=== PATIENT | female | born 1990 ===

== ENCOUNTER 2025-03-04 14:21 | Inpatient (IN) | payer OTHER, SELFPAY ==
[2025-03-04 10:17] VITALS: BP 143/87
--- NOTE | 2025-03-04 11:02 | ED.GENMED ---
History of Present Illness
General
Chief Complaint: Abdominal Pain
Source: patient
Exam Limitations: none
Time Seen by Provider: 03/04/25 10:51
History of Present Illness
History of Present Illness:
35-year-old female diffuse abdominal symptoms for 5 days. Some nausea. Generalized discomfort. Initially started in the lower abdomen. Points to bilateral abdomen and flanks. No back pain some nausea although none currently. No diarrhea. No
one else is ill at home. No travel history. No recent antibiotics.
Past History
Past History
ED Past Medical History: None
ED Past Surgical History: Appendectomy
Review of Systems
Review of Systems
All Other Systems: Not applicable
Constitutional: Denies fever
Respiratory: Reports no symptoms
: Reports no symptoms
Phy Exam
Physical Exam
Physical Exam:
GENERAL: Alert and oriented in no apparent distress. Ambulated from the bathroom without difficulty and in no distress
EYE: Orbits normal.
NECK: Supple
ENT: Pharynx without erythema
CARDIAC: Regular rate and rhythm without any obvious murmurs.
LUNGS: Clear breath sounds,normal
ABDOMEN: Soft, bowel sounds present. No distention. No rebound or guarding no mass or hernia. Very minimal diffuse tenderness. Mild tenderness slightly increased from baseline tenderness in the left lower quadrant
NEUROLOGICAL: Alert and oriented , grossly non-focal
SKIN: Warm and dry, no rash or lesion, no discoloration, skin intact.
MUSCULOSKELETAL: No edema,no deformity.Good color
PSYCH: Normal and appropriate interaction.
Course
Orders/Labs/Results
Orders:
Orders
03/04/25 10:54
IV Insert/Care/Rem.- Treatment PRN
0.9% Sodium Chloride 1000 ml [Nss] 1,000 ml IV BOLUS
Test Result ONCE
03/04/25 11:02
CT Abd/Pel (IV only)-DH only Urgent
Comment:
Reason For Exam: Diffuse abdominal pain. Greatest left lower quadr
03/04/25 11:10
Complete Blood Count/With Diff Urgent
Urinalysis Reflex To Culture Urgent
Date Specimen was Collected: 03/04/25
Time Specimen was Collected: 10:59
Urine Microscopic Reflex Cult Urgent
Urine Culture Urgent
DAIANA Source: U
Specimen Description:
Obtained by: Random
Date Specimen was Collected: 03/04/25
Time Specimen was Collected: 10:59
03/04/25 11:35
Comprehensive Metabolic Panel Urgent
HCG, Serum Qualitative Screen Urgent
Lipase Urgent
03/04/25 13:25
Piperacillin/Tazo 3.375 Gram [Zosyn] 3.375 gram in 50 ml IV NOW
Abnormal Lab Results
03/04/25 03/04/25
11:10 11:35
WBC 14.3 H 10^3/uL
(4.8-10.8)
MPV 11.0 H fL
(7.4-10.4)
Abs Immat Gran (auto) 0.1 H 10^3/uL
(0-0.05)
Absolute Neuts (auto) 10.2 H 10^3/uL
(1.4-6.5)
Absolute Monos (auto) 0.9 H 10^3/uL
(0.1-0.6)
Lymphocytes % 17.4 L %
(20.5-51.1)
Creatinine 0.5 L mg/dL
(0.6-1.0)
ALT 41 H U/L
(0-35)
Leukocyte Esterase Rfl 1+ A
(Negative)
Urine Bacteria (Reflex) Many A
(Negative)
Urine Albumin (Reflex) 1+ A
(Neg - Trace)
03/04/25 11:10
03/04/25 11:35
Vital Signs
Initial and Last Documented VS:
Initial Vital Signs
Temp Pulse Resp BP Pulse Ox
98.1 F 90 16 143/87 98
03/04/25 10:17 03/04/25 10:17 03/04/25 10:17 03/04/25 10:17 03/04/25 10:17
Last Documented Vital Signs
Temp Pulse Resp BP Pulse Ox
98.1 F 75 16 116/75 100
03/04/25 10:17 03/04/25 12:30 03/04/25 12:30 03/04/25 12:00 03/04/25 12:30
MDM/Problems Addressed
Differential Diagnosis Includes:
Diffuse vague abdominal symptoms. Clinically nonsurgical abdomen. Patient is nontoxic. Greatest tenderness is left lower quadrant. Consider diverticulitis, viral syndrome. Doubt gallbladder. Appendix is gone. Highly doubt bowel obstruction.
Workup in progress. Not describing symptoms. Menses were normal. Denies .
*Pulse Oximetry
SaO2: 98
Oxygen Mode of Delivery: Room air
Patient hypoxic: no
*Critical Care Note
Total Time (30-74mins, 75-104mins- exclusive of procedures): Not Applicable
Update Note
Update Note:
Copy of CT report given to patient for follow-up. Hepatic steatosis along with diverticulitis
Discussed options with patient. Moderate diverticulitis. Leukocytosis. Some free fluid. I have elected for inpatient management
ED Attending Note
-
Portions of this chart may have been created with voice recognition software.� Occasional wrong word or��sound alike� substitutions may have occurred due to the inherent limitations of voice recognition software.
Discharge Plan
Departure
Patient Disposition: Admit
Date of Disposition: 03/04/25
Time of Disposition: 13:26
Presentation/result/management discussed w/ accepting MD/DO: Hospitalist
Discharge Problem:
Acute diverticulitis, Small ovarian cyst, Hepatic steatosis
Prescriptions:
No Action
ibuprofen 200 mg Tablet
800 mg PO DAILYPRN PRN (Reason: mild pain)
Referrals:
Estuardo Canales CRNP [Family Provider]
Interventions
Interventions:
*Risk Screen - Suicide Last Done: 03/04/25 10:17
*Neglect/Abuse Screening Last Done: 03/04/25 10:17
[facility] Assessment Last Done: 03/04/25 11:13
Discharge Date and Time
Print Language: AZERBAIJANI
[2025-03-04] MEDS: NSS 1000 IV ×2 (11:09→15:46)
[2025-03-04 11:12] VITALS: BP 123/72; BMI 32.8
[2025-03-04 11:24] LABS: Hematocrit 40.1 % (37.0-47.0); Hemoglobin 13.7 g/dL (12.0-16.0); Mean Corp Hgb Conc. 34.2 g/dL (33.0-37.0); Mean Corpuscular Volume 89.5 fL (81.0-99.0); Nucleated Red Blood Cells % 0 %; Platelet Count 317 10^3/uL (130-400); Red Cell Dist. Width 12.4 % (11.5-14.5)
[2025-03-04 11:25] LABS: Urine Character Clear (Clear)
[2025-03-04 11:40] LABS: Urine Squamous Cell >30 /LPF (Few)
[2025-03-04 11:41] LABS: Urine Red Blood Cell 0-2 /HPF (0-2)
[2025-03-04 12:00] VITALS: BP 116/75
[2025-03-04 12:07] LABS: HCG, Serum Qualitative Screen Negative
[2025-03-04 12:11] LABS: ALT (SGPT) 41 U/L (0-35); AST (SGOT) 23 U/L (14-36); Albumin 4.8 g/dl (3.5-5.0); Alkaline Phosphatase 57 U/L (38-126); Blood Urea Nitrogen 7 mg/dl (7-17); Calcium 9.1 mg/dl (8.4-10.2); Carbon Dioxide 23 mmol/L (22-30); Chloride 105 mmol/L (98-107); Estimated Creatinine Clearance > 125 ml/min; Glucose 92 mg/dl (70-99); Lipase 80 U/L (23-300); Potassium 4.3 mmol/L (3.5-5.1); Sodium 136 mmol/L (135-145); Total Protein 7.6 g/dl (6.3-8.2); eGFR > 60.00
[2025-03-04] MEDS: ZOSYN 50 IV ×2 (13:36→20:42)
--- NOTE | 2025-03-04 14:02 | HPS.HSE ---
Family Physician
-
Family Physician: KEO Rothman
Chief Complaint
-
abdominal pain
History of Present Illness
35-year-old female without past medical history presenting with diffuse abdominal pain for 5 days with nausea and decreased p.o. intake. Pain initially started in the lower abdomen. Pain radiates to bilateral abdomen and flanks worse in the left
lower abdomen. No back pain. No diarrhea. No sick contacts.
She vapes. She rarely drinks alcohol.
Medical History
Past Medical History
Past Medical History: Reports None
Past Surgical History: Reports Appendectomy
Social History
Tobacco: Vaping
Alcohol: None
Drug: None
Family History
Family History: Not pertinent
Allergies / Home Medications
Allergies reflects when Allergies were last updated in [facility].
Home Medications with original date entered in [facility]
Allergy/Medication List:
Allergies
Allergy/AdvReac Type Severity Reaction Status Date / Time
No Known Allergies Allergy Verified 03/04/25 10:19
Home Medications
ibuprofen 200 mg tablet 800 mg PO DAILYPRN PRN mild pain 03/04/25
Review of Systems
-
History Source: Patient
A 12 point ROS was completed and negative except as noted: Yes
Constitutional: Reports No Symptoms
EENT: Reports No Symptoms
Respiratory: Reports No Symptoms
Cardiac: Reports No Symptoms
Abdomen/GI: Reports See HPI
: Reports No Symptoms
Musculoskeletal: Reports No Symptoms
Skin: Reports No Symptoms
Neurological: Reports No Symptoms
Endocrine: Reports No Symptoms
Hematologic/Lymphatic: Reports No Symptoms
Psych: Reports No Symptoms
Physical Exam
Vital Signs
Vital Signs
Temp Pulse Resp BP Pulse Ox
98.1 F 75 16 116/75 100
03/04/25 10:17 03/04/25 12:30 03/04/25 12:30 03/04/25 12:00 03/04/25 12:30
Physical Exam
General: Well Developed, Well Nourished and No Apparent Distress
HEENT: NormoCephalic, Moist mucous membranes and Atraumatic
Respiratory: Clear
Cardiac: S1/S2 and Regular Rhythm; No Murmur or Rub
GI: Soft, Non Distended, Normal Bowel Sounds and Tender (diffusely ); No Organomegaly
Rectal: Deferred by Provider
Musculoskeletal: No Clubbing, No Cyanosis and No Edema
Skin: No Rash
Neuro: Nonfocal/grossly intact
Laboratory Results
-
03/04/25 11:10
03/04/25 11:35
Laboratory Results
Total Bilirubin 0.9 mg/dl (0.2-1.3) 03/04/25 11:35
AST 23 U/L (14-36) 03/04/25 11:35
ALT 41 U/L (0-35) H 03/04/25 11:35
Alkaline Phosphatase 57 U/L (38-126) 03/04/25 11:35
Lipase 80 U/L (23-300) 03/04/25 11:35
Data Reviewed
-
Lab Data: Labs Reviewed by me
Old Records: Reviewed
Impression/Plan
-
IMPRESSION:
PLAN:
# Acute diverticulitis
-Urinalysis unremarkable
-CT abdomen pelvis shows acute diverticulitis in the descending colon, moderate diverticulosis, 1.9 cm ruptured corpus luteal cyst in the right ovary, small amount of peritoneal fluid he fluid in the pelvic cul-de-sac,
- N.p.o., advance diet as tolerated
- IV fluids
- Zosyn
- Zofran, Toradol, Dilaudid as needed
Vaping history
History of appendectomy
Full code
DVT prophylaxis�heparin
N.p.o.
--- NOTE | 2025-03-04 14:34 | EDCM ---
CM reviewed chart and met with pt and SO bedside in ED. Lives with PRIMITIVO Griffin in one story apartment, [address].
Independent in ADLs, personal care and ambulation at baseline. No DME.
Confirms prescription coverage.
No hx VN or SNF.
PCP: Estuardo Canales
Pharmacy: [facility]
Anticipate discharge home, CM will continue to follow for any discharge planning needs.
[2025-03-04 15:19] VITALS: BP 131/63
[2025-03-04 15:20] VITALS: BMI 32.2
[2025-03-04] MEDS: DILAUDID 0.5 MG IV ×2 (15:31→20:43)
[2025-03-04] MEDS: ZOFRAN 4 MG IV ×2 (15:36→23:20)
--- NOTE | 2025-03-04 17:57 | PTCARENOTE ---
Oriented to room and ambulated to bed independently. Call pierson within reach.
[2025-03-04] MEDS: TORADOL 15 MG IV (18:32)
[2025-03-04] MEDS: HEPARIN 5000 UNITS SC (20:42)
[2025-03-04 23:16] VITALS: BP 104/64
[2025-03-05] MEDS: DILAUDID 0.5 MG IV ×4 (01:00→20:30)
[2025-03-05] MEDS: ZOSYN 50 IV ×4 (01:00→20:29)
[2025-03-05] MEDS: NSS 1000 IV ×2 (06:06→16:33)
[2025-03-05 07:06] VITALS: BP 107/62
[2025-03-05 07:11] LABS: Hematocrit 33.2 % (37.0-47.0); Hemoglobin 11.1 g/dL (12.0-16.0); Mean Corp Hgb Conc. 33.4 g/dL (33.0-37.0); Mean Corpuscular Volume 89.2 fL (81.0-99.0); Nucleated Red Blood Cells % 0 %; Platelet Count 231 10^3/uL (130-400); Red Cell Dist. Width 12.3 % (11.5-14.5)
[2025-03-05 07:35] LABS: ALT (SGPT) 35 U/L (0-35); AST (SGOT) 19 U/L (14-36); Albumin 4.0 g/dl (3.5-5.0); Alkaline Phosphatase 52 U/L (38-126); Blood Urea Nitrogen 6 mg/dl (7-17); Calcium 8.4 mg/dl (8.4-10.2); Carbon Dioxide 25 mmol/L (22-30); Chloride 106 mmol/L (98-107); Estimated Creatinine Clearance > 125 ml/min; Glucose 94 mg/dl (70-99); Potassium 4.4 mmol/L (3.5-5.1); Sodium 136 mmol/L (135-145); Total Protein 6.4 g/dl (6.3-8.2); eGFR > 60.00
--- NOTE | 2025-03-05 08:23 | W.PN.UPDATE ---
Update Note
Progress Note Update
I have independently evaluated the patient at the bedside. I have reviewed the case with the resident and agree with all documentation unless otherwise specified.
AFVSS this morning. Patient states pain improved. Leukocytosis resolved.
AO x 4, NAD. Obese habitus. Benign cardiopulmonary exam. Mild left-sided abdomen tenderness without peritoneal signs, NBS+. No edema, skin warm and dry, palpable pulses. No focal neurologic deficit
#Acute diverticulitis of descending colon. CT with signs of acute diverticulitis, moderate diverticulosis. WBC downtrending on IV Zosyn. Will continue with IV Zosyn for now, trend CBC and temperature curve, monitor abdomen exam. Ultimately plan
to transition to Augmentin to complete 7 days of antibiotics if she continues to improve. Will need colonoscopy in 6 to 8 weeks. As needed antiemetics and analgesics
#Ruptured ovarian cyst. Analgesics and antiemetics as above
#Nicotine vaping. Encourage cessation
Diet -- start CLD
Thromboprophylaxis -- SQ heparin
CODE STATUS -- Full
Disposition -- Home in 24 to 48 hours
[2025-03-05] MEDS: HEPARIN 5000 UNITS SC ×2 (09:18→20:29)
[2025-03-05] MEDS: TORADOL 15 MG IV (09:18)
--- NOTE | 2025-03-05 12:32 | W.PN.HOSP.TC ---
Today's Communication/Plan
-
Continue Zosyn today, transition to Augmentin in the a.m. tomorrow
Advance diet as tolerated, resumed on full liquid diet.
Continue pain management.
Assessment / Plan
Assessment / Plan
Assessment-
Rosie is a 35-year-old female with who is a current vaper, with no significant past medical history presents to the ER for evaluation of sudden onset severe left lower quadrant abdominal pain. Is diagnosed to have acute diverticulitis.
Impression and plan -
Acute diverticulitis-
As evidenced by CT, in the descending colon. Ruptured ovarian cyst-single corpus luteal cyst (correlates with her LMP, not abnormal)
Moderate diverticulosis of sigmoid colon.
Resolved leukopenia on IV Zosyn, will continue IV Zosyn for today.
Switch to oral Augmentin in the a.m. tomorrow
GI follow-up in 6 weeks after discharge.
Advance diet to full liquid diet, if tolerates advance diet as tolerated
Vaping -
Nicotine, not willing to quit
DVT prophylaxis-
Heparin subcu
CODE STATUS-
Full code
Anticipated Discharge: Within 24 hours
Subjective/Interval History
-
Date of Service: March 05, 2025
Patient reports that her pain and nausea improved with medication, currently she has good appetite and she would want to try meals.
Objective Data
-
Labs:
Laboratory Results
03/05/25
06:36
WBC 10.6
Hgb 11.1 L
Hct 33.2 L
Plt Count 231 D
Sodium 136
Potassium 4.4
Chloride 106
Carbon Dioxide 25
BUN 6 L
Creatinine 0.7
Glucose 94
Calcium 8.4
Total Bilirubin 1.0
AST 19
ALT 35
Alkaline Phosphatase 52
Vital Signs:
Vital Signs
Temp Pulse Resp BP Pulse Ox
98.2 F 71 18 107/62 98
03/05/25 07:06 03/05/25 07:06 03/05/25 07:06 03/05/25 07:06 03/05/25 08:45
I&O
03/04/25 03/05/25 03/06/25
06:59 06:59 06:59
Intake Total 980 / 980
Balance 980 / 980
Review of Systems
-
History Source: Patient
Constitutional: Denies Fever or Fatigue
EENT: Reports No Symptoms Reported
Respiratory: Reports No Symptoms
Abdomen/GI: Reports Abdominal Pain (v) and Nausea (Improving)
Genitourinary: Reports No Symptoms
Musculoskeletal: Reports No Symptoms
Skin: Reports No Symptoms
Neuro: Reports No Symptoms
Endocrine: Reports No Symptoms
Allergy / Immunology: Reports No Symptoms
Physical Exam
-
General: No Apparent Distress and Comfortable
HEENT: Moist Mucous Membranes and Anicteric
Respiratory: Clear to Auscultation; Negative Wheezes, Rales, Rhonchi or Crackles
Cardiac: S1/S2 and Irregular Rhythm; Negative Murmur, Rub or Gallop
GI: Soft, Nondistended and Tender (LLQ); Negative Normal Bowel Sounds (Hyperactive)
Musculoskeletal: No Clubbing, No Cyanosis and No Edema
Neuro: AO x 3 and No Motor Deficits
Psych: Calm
[2025-03-05] MEDS: ZOFRAN 4 MG IV (14:59)
[2025-03-05 15:41] VITALS: BP 114/68
[2025-03-05 23:38] VITALS: BP 109/62
[2025-03-06] MEDS: ZOSYN 50 IV ×2 (01:30→08:01)
[2025-03-06] MEDS: TORADOL 15 MG IV (03:39)
[2025-03-06 07:10] VITALS: BP 113/67
[2025-03-06] MEDS: HEPARIN 5000 UNITS SC (08:00)
[2025-03-06 08:34] LABS: Hematocrit 33.2 % (37.0-47.0); Hemoglobin 11.5 g/dL (12.0-16.0); Mean Corp Hgb Conc. 34.6 g/dL (33.0-37.0); Mean Corpuscular Volume 89.5 fL (81.0-99.0); Platelet Count 250 10^3/uL (130-400); Red Cell Dist. Width 11.9 % (11.5-14.5)
[2025-03-06 08:55] LABS: Blood Urea Nitrogen 6 mg/dl (7-17); Calcium 9.0 mg/dl (8.4-10.2); Carbon Dioxide 23 mmol/L (22-30); Chloride 108 mmol/L (98-107); Estimated Creatinine Clearance > 125 ml/min; Glucose 90 mg/dl (70-99); Potassium 4.5 mmol/L (3.5-5.1); Sodium 138 mmol/L (135-145); eGFR > 60.00
--- NOTE | 2025-03-06 09:05 | W.PN.HOSP.TC ---
Addendum entered and electronically signed by Robin Sandoval MD 03/06/25 15:11:
Discharge home
Augmentin
Return if abdominal pain worse not tolerating diet nausea vomiting fevers
Read, reviewed, and agree. See same day progress note for additional details. Time spent reviewing records in EMR, med rec, consults, notes, d/w consultants, nursing, family, and CM
Original Note:
Today's Communication/Plan
-
Plan reviewed with attending
Symptoms resovled. Home on augmentin. F/u GI outpt
Assessment / Plan
Assessment / Plan
Assessment-
Rosie is a 35-year-old female with who is a current vaper, with no significant past medical history presents to the ER for evaluation of sudden onset severe left lower quadrant abdominal pain. Is diagnosed to have acute diverticulitis.
Impression and plan -
Acute diverticulitis-
As evidenced by CT, in the descending colon. Ruptured ovarian cyst-single corpus luteal cyst (correlates with her LMP, not abnormal)
Moderate diverticulosis of sigmoid colon.
Resolved leukopenia on IV Zosyn, will continue IV Zosyn for today.
Switched to oral Augmentin
GI follow-up in 6 weeks after discharge.
Tolerated advanced diet.
Vaping -
Nicotine, not willing to quit
DVT prophylaxis-
Heparin subcu
CODE STATUS-
Full code
Discharge today
Anticipated Discharge: Today
Subjective/Interval History
-
Date of Service: March 06, 2025
Pt reporting feeling better. Except for mild cramping/tenderness, her symptoms have fully resolved. Denies blood in BM, nausea, vomiting.
Objective Data
-
Labs:
Laboratory Results
03/06/25
08:07
WBC 5.7
Hgb 11.5 L
Hct 33.2 L
Plt Count 250
Sodium 138
Potassium 4.5
Chloride 108 H
Carbon Dioxide 23
BUN 6 L
Creatinine 0.6
Glucose 90
Calcium 9.0
Vital Signs:
Vital Signs
Temp Pulse Resp BP Pulse Ox
98.5 F 73 16 113/67 98
03/06/25 07:10 03/06/25 07:10 03/06/25 07:10 03/06/25 07:10 03/06/25 07:10
I&O
03/05/25 03/06/25 03/07/25
06:59 06:59 06:59
Intake Total 980 / 980 1540 / 1540
Balance 980 / 980 1540 / 1540
Review of Systems
-
History Source: Patient
All other systems: Reviewed and negative
Physical Exam
-
General: Well Developed, Well Nourished, No Apparent Distress and Comfortable
HEENT: Normocephalic, Atraumatic and Moist Mucous Membranes
Respiratory: Clear to Auscultation and Non Labored Respirations
Cardiac: Regular Rhythm and S1/S2
GI: Soft, Nontender (mild discomfort to deep palpation, no guarding, no rebound) and Nondistended
Musculoskeletal: No Clubbing, No Cyanosis and No Edema
Skin: Warm and Dry
Neuro: AO x 3 and Nonfocal/Grossly Intact
Psych: Calm
--- NOTE | 2025-03-06 09:05 | W.DCSUMMARY ---
Discharge Summary
Discharge Data
Date of Admission: 03/04/25
Date of Discharge: 03/06/25
-
Pending Results: No
Hospital Course
35-year-old female PMH appendectomy presenting with diffuse abdominal pain for 5 days with nausea and decreased p.o. intake. Pain initially started in the lower abdomen. Pain radiates to bilateral abdomen and flanks worse in the left lower
abdomen. No back pain. No diarrhea. No sick contacts. She vapes. She rarely drinks alcohol.
CT with signs of acute diverticulitis, moderate diverticulosis. Provided analgesics and antiemetics as needed. WBC downtrending on IV Zosyn. Trended CBC and temperature curve, monitored abdomen exam. Transitioned to Augmentin to complete 7 days
of antibiotics due to continued improve.
Will need colonoscopy in 6 to 8 weeks.
Ruptured ovarian cyst seen on CT, correlated appropriately with menstrual period.
Nicotine vaping. Encourage cessation
Received flu vaccine on dc.
Thromboprophylaxis -- SQ heparin
Continue Zosyn today, transition to Augmentin in the a.m. tomorrow
Advance diet as tolerated, resumed on full liquid diet.
Continue pain management.
Discharge Plan
-
Patient Disposition: Home (Routine Discharge)
Discharge Diagnosis/Procedures: Acute diverticulitis
Condition: Good
Diet: Low Cholesterol and Low Residue
Activity: No restrictions
Driving Restrictions: As prior to admission
Instructions: Diverticulitis (DC)
Referrals:
Estuardo Canales CRNP [Family Provider]
Yojana Saenz MD [Active, Gastroenterology]
Additional Discharge Medication Instructions: Follow up with GI in 6 weeks. Complete entire antibiotic course.
Prescriptions:
New
amoxicillin-pot clavulanate 875-125 mg tablet
1 tab PO BID 7 Days Qty: 14 0RF
Discontinued
ibuprofen 200 mg Tablet
800 mg PO DAILYPRN PRN (Reason: mild pain)
Discharge Orders:
Discharge Patient (As Directed); Ordered 03/06/25
Ordered By: Roxanne Sepulveda
Discharge Date and Time
Discharge Date/Time: 03/06/25 11:35
Print Language: FAROESE
--- NOTE | 2025-03-06 10:38 | CM ---
Pt is discharged to home, no needs. Will go with with friend in private car
== END 2025-03-06 11:35 | disposition home or self-care (01) | DRG 392 ==
LOC: 4 EAST ACU 14:21
PROVIDERS: Student in an Organized Health Care Education/Training Program; ADMITTING PHYSICIAN Hospitalist; ATTENDING PHYSICIAN Hospitalist; EMERGENCY PHYSICIAN Emergency Medicine
DX: K57.32 Diverticulitis of large intestine without perforation or abscess without bleeding (principal); Z90.49 Acquired absence of other specified parts of digestive tract; F17.290 Nicotine dependence, other tobacco product, uncomplicated; N83.11 Corpus luteum cyst of right ovary
CPT/HCPCS: 74177; 80048; 80053; 81003; 81015; 83690; 84703; 85025; 85027; 87086; 96361; 96365; 99285; Q9967